=== PATIENT | female | born 1950 | race Caucasian/White ===

== ENCOUNTER → 2019-04-12 | Outpatient (CLI) | payer BC ==
--- NOTE | 2019-04-12 10:04 | PCVCIMAG ---
APPROVED REPORT Study performed: 04/12/2019 08:36:57 EXAM: Comprehensive 2D, Doppler, and color-flow Echocardiogram Patient Location: Echo lab Status: routine BSA: 1.60 HR: 67 bpmBP: 126/76 mmHg Rhythm: LBBB Other Information Study Quality: Adequate Risk Factors: Cardiac Risk Factors: Hyperlipidemia Indications LBBB 2D Dimensions IVSd: 9.16 (7-11mm) LVDd: 39.10 mm PWd: 7.90 (7-11mm) LVDs: 29.39 (25-40mm) Left Atrium: 36.92 (27-40mm) Aortic Root: 30.51 mm LV Single Plane 4CH: 51.24 % LV Single Plane 2CH: 60.39 % Biplane EF: 56.3 % Volumes Left Atrial Volume (Systole) Single Plane 4CH: 38.23 mLSingle Plane 2CH: 62.37 mL LA ESV Index: 31.00 mL/m2 Aortic Valve AoV Peak Marin.: 1.32 m/s AO Peak Gr.: 6.97 mmHgLVOT Max P.76 mmHg LVOT Max V: 0.97 m/s Mitral Valve E/A Ratio: 1.0 MV Decel. Time: 218.62 ms MV E Max Marin.: 0.70 m/s MV A Marin.: 0.71 m/s IVRT: 124.57 ms Pulmonary Valve PV Peak Marin.: 0.90 m/sPV Peak Gr.: 3.22 mmHg Pulmonary Vein P Vein S: 0.24 m/sP Vein A: 0.33 m/s P Vein D: 0.34 m/sP Vein A Dur.: 162.6 msec P Vein S/D Ratio: 0.71 Tricuspid Valve TR Peak Marin.: 2.46 m/s TR Peak Gr.: 24.26 mmHg Left Ventricle The left ventricle is normal size. There is normal LV segmental wall motion. There is normal left ventricular wall thickness. Left ventricular systolic function is normal. The left ventricular ejection fraction is within the normal range. LVEF is 55%. Mild diastolic dysfunction is present (impaired relaxation pattern). Right Ventricle The right ventricle is normal size. The right ventricular systolic function is normal. Atria The left atrium size is normal. The right atrium size is normal. Aortic Valve The aortic valve is normal in structure. No aortic regurgitation is present. There is no aortic valvular stenosis. Mitral Valve The mitral valve is normal in structure. Mild mitral regurgitation. No evidence of mitral valve stenosis. Tricuspid Valve The tricuspid valve is normal in structure. Mild tricuspid regurgitation with PAP of 30 mmHg. Pulmonic Valve The pulmonary valve is normal in structure. There is no pulmonic valvular regurgitation. Great Vessels The aortic root is normal in size. IVC is normal in size and collapses >50% with inspiration. Pericardium There is no pericardial effusion. There is no pleural effusion. <Conclusion> Left ventricular systolic function is normal. There is normal LV segmental wall motion. LVEF is 55%. Mild diastolic dysfunction The aortic valve is normal in structure. No aortic regurgitation or stenosis The mitral valve is normal in structure. Mild mitral regurgitation. Mild tricuspid regurgitation with pulmonary artery pressure of 30 mmHg. There is no pericardial effusion.
== END | disposition home or self-care (01) ==
LOC: PCVCIMAG 08:59
PROVIDERS: ATTEND Internal Medicine
DX: I44.7 Left bundle-branch block, unspecified (principal); E78.5 Hyperlipidemia, unspecified; G47.33 Obstructive sleep apnea (adult) (pediatric); Z88.6 Allergy status to analgesic agent
CPT/HCPCS: 93306